=== PATIENT | female | born 1930 | race Caucasian/White ===

== ENCOUNTER 2017-10-27 07:00 | Inpatient (IN) | payer OTHER, MEDICARE ==
[~2017-10-27] VITALS: Ht 160 cm; Wt 59.0 kg
[2017-10-28 09:30] VITALS: BP 130/80
--- NOTE | 2017-10-28 10:32 | History & Physical Pre-Op ---
General Information and HPI History of Present Illness: This is an 86 year-old female with a history of HTN who recently underwent a revision of a right total hip replacement by Dr. Head at [facility] 3 weeks ago due to dislocating her right hip while at rehab. Her hospital course was complicated by acute blood loss anemia and she received a transfusion and was discharged to rehab at [facility]. She states the nurse noticed redness and swelling from her incision while she was removing ted last Thursday and contacted Dr. Head who evaluated the patient on , where he obtained cultures. She states she has been on cefuroxime 250 mg po bid after completing IV antiobiotics via PICC line for a strep bactremia infection that developed four months ago in which she underwent a washout of her left shoulder, right knee and right hip. She states Dr. Alexis, from [place] managed her antibiotics at [facility]. She states there was a Flu outbreak at rehab and was started on Tamiflu prophylactically. She denies any pain, fever, chills, night sweats, difficulty breathing or shortness of breath. Allergies/Medications Allergies: Coded Allergies: gluten (Intermediate, Celiac disease 10/28/17) Home Med list Acetaminophen (Tylenol Extra Strength) 500 MG TABLET 975 MG PO TID PAIN ( Reported) Amitriptyline HCl 100 MG TABLET 1 TAB PO QPM NEUROPATHY (Reported) Amlodipine Besylate (Norvasc) 5 MG TABLET 1 TAB PO DAILY HTN (Reported) Bromfenac Sodium 0.09 % DROPS 1 GTT OPH BID CATARACTS (Reported) Cefuroxime Axetil (Cefuroxime) 500 MG TABLET 1 TAB PO BID INFECTION (Reported ) Ferrous Sulfate 325 MG (65 MG IRON) TABLET 1 TAB PO BID ANEMIA (Reported) Furosemide (Lasix) 20 MG TABLET 1 TAB PO EVERY OTHER DAY BP (Reported) Furosemide (Lasix) 40 MG TABLET 1 TAB PO EVERY OTHER DAY BP (Reported) Hydralazine HCl 25 MG TABLET 1 TAB PO TID HTN (Reported) Oseltamivir Phosphate (Tamiflu) 75 MG CAPSULE 1 CAP PO DAILY FLU (Reported) Potassium Chloride 10 MEQ CAPSULE.ER 1 CAP PO DAILY HYPOKALEMIA (Reported) Prednisolone Acetate (Omnipred) 1 % DROPS.SUSP 1 GTT OPH Q4H MACULAR DEGENERATION (Reported) Tamsulosin HCl (Flomax) 0.4 MG CAP.ER.24H 1 CAP PO DAILY URINARY RETENTION ( Reported) Past History Medical History Blood Transfusion Hx: Yes Neurological: peripheral neuropathy EENT: cataracts, macular degeneration Cardiovascular: hypertension Blood Disorders: anemia Surgical History Pertinent Surgical History: cholecystectomy, , hip replacement (R hip; revision ), knee replacement (B/L in 1994), Metal plate skull, Carpal tunnel release B/L Review of Systems Review of Systems Constitutional: Denies: no symptoms. EENTM: Denies: no symptoms. Cardiovascular: Denies: no symptoms. Respiratory: Denies: no symptoms. GI: Denies: no symptoms. Genitourinary: Denies: no symptoms. Musculoskeletal: Denies: see HPI. Skin: Denies: see HPI. Neurological/Psychological: Denies: no symptoms. Hematologic/Endocrine: Denies: no symptoms. All Other Systems: Reviewed and Negative Exam & Diagnostic Data Last 24 Hrs of Vital Signs/I&O T - 98.0 F HR - 83 RR - 18 BP - 130/80 02 - 96% on RA Physical Exam: Gen - resting comfortably awake milan lert in NAD Cardiac - S1S2 noted Lungs - good inspiratory effort, CTAB Abd - soft, nondistended an nontender to palpation Ext - R hip inspected, ted removed with remaining steri-strips in place, from the medial aspect to the inferior incision is warm, erythematous and indurated on the lateral aspect of her hip, nontender to palpation with no active drainage noted, sensation decreased due to neuropathy and motor intact, decreased passive and active ROM due to pain. No edema or calf tender with chronic stasis changes B/L Assessment/Plan Assessment/Plan: This is an 86 year-old female with a history of HTN and a recent revision of a right total hip replacment by Dr. Head at [facility] who presents with a postoperative infection of her right total hip who requires surgical intervention Proceed to OR for washout and debridement of right hip today Keep NPO on IVF, IVF analgesics Preop - EKG, cbc, bep, coags, type and screen Resume home meds preop Start antibiotics postop D/w Dr. Head As Ranked By This Provider Problem List: 1. Postoperative wound infection of right hip 2. History of total right hip replacement 3. Status post revision of total hip replacement
[2017-10-28] MEDS ORDERED: TAMIFLU75 M1 PO (10:51)
[2017-10-28] MEDS ORDERED: NORVASC5 M1 PO (10:51)
[2017-10-28] MEDS ORDERED: AMITRIPTYLINE100 M2 PO (10:53)
[2017-10-28] MEDS ORDERED: BROMFENAC SODI1.7 ML OPH (10:54)
[2017-10-28] MEDS ORDERED: CEFUROXIME500 MG PO (10:54)
[2017-10-28] MEDS ORDERED: LASIX20 M1 PO (10:54)
[2017-10-28] MEDS ORDERED: FERROUS SULFAT325 M3 PO (10:54)
[2017-10-28] MEDS ORDERED: LASIX40 M1 PO (10:55)
[2017-10-28] MEDS ORDERED: HYDRALAZINE HCL25 M1 PO (10:56)
[2017-10-28] MEDS ORDERED: POTASSIUM CHLO10 ME3 PO (10:56)
[2017-10-28] MEDS ORDERED: FLOMAX0.4 M1 PO (10:59)
[2017-10-28] MEDS ORDERED: OMNIPRED10 ML OPH (11:00)
[2017-10-28] MEDS ORDERED: TYLENOL EXTRA500 M2 PO (11:01)
[2017-10-28 11:15] LABS: HEMATOCRIT 28.7 % (37-47); MEAN CORPUSCULAR HGB 27.8 PG (27.0-31.0); MEAN CORPUSCULAR HGB CONC 32.6 G/DL (33.0-37.0); MEAN CORPUSCULAR VOLUME 85.3 FL (81.0-99.0); MEAN PLATELET VOLUME 7.8 FL (7.4-10.4); PLATELET COUNT 483 /CUMM (130-400); RBC DISTRIBUTION WIDTH 15.3 % (11.5-14.5); RED BLOOD CELL CT 3.36 /CUMM (4.20-5.40); WHITE BLOOD CELL COUNT 8.7 /CUMM (4.8-10.8)
[2017-10-28 11:17] LABS: ABSOLUTE BASOPHIL COUNT 0 /CUMM (0.0-0.2); ABSOLUTE EOSINOPHIL COUNT 0.1 /CUMM (0.0-0.7); ABSOLUTE GRANULOCYTE CT 7.2 /CUMM (1.4-6.5); ABSOLUTE LYMPH COUNT 0.9 /CUMM (1.2-3.4); ABSOLUTE MONOCYTE COUNT 0.5 /CUMM (0.10-0.60); BASOPHIL % 0.5 % (0.0-2.0); EOSINOPHIL % 1.3 % (0-5); GRANULOCYTE % 82.5 % (42.2-75.2)
--- NOTE | 2017-10-28 15:05 | Operative Report ---
Operative/Inv Procedure Report Surgery Date: 10/28/17 Name of Procedure: 1. Right hip acetabular revision 2. Irrigation and non-excisional debridement right hip Pre-Operative Diagnosis: 1. Failed right hip component 2. Right hip infection Post-Operative Diagnosis: same Estimated Blood Loss: 650 Surgeon/Brake Tester: Bharta Head MD Anesthesia: block Operative/Procedure Note Note: Description of Procedure: The patient was taken to the operating room and positively identified. After induction of spinal anesthesia and administration of appropriate pre-operative antibiotics, the patient was positioned supine on the operating room table and all bony prominences were well padded. After performing a surgical timeout, the right lower extremity was prepped and draped in the usual sterile fashion. Utilizing the previous incision, a direct anterior approach was made to the right hip. The superficial layer was opened and some necrotic-looking tissue was identified. Samples of this were sent for culture. The superficial wound bed was then curetted. The deep fascia was identified and all retained suture was removed. The deep fascia was then opened and the hip was entered. Cloudy fluid was obtained. Samples of both the fluid and deep tissues were taken and sent for culture. The wound bed was then debrided of necrotic looking soft tissue. Some heterotopic ossification was removed. The trunnion was removed from the polyethylene component and the polyethylene component itself was removed from the acetabulum. At this point the wound bed was irrigated with multiple liters of sterile saline. The hip space was then lavaged with half strength Betadine solution. A new Jim D constrained liner was then impacted into the acetabular component. A [place] 22.2 mm +0 femoral head was impacted onto the trunnion. The head was then reduced into the constrained liner without difficulty. The wound bed was then irrigated with multiple liters of sterile saline again. A gram of vancomycin powder was placed in the intra-articular space. Medium Hemovac drain was left in the deep space. The fascial layer was closed with interrupted #5 Ethibond suture. Another drain was left superficial to the fascia. The skin layer was closed with heavy nylon suture in horizontal mattress fashion and then ted were used for the remainder of the closure. Sterile dressings were applied, the patient was awakened, and taken to the recovery room in satisfactory condition.
[2017-10-28 15:44] LABS: ABSOLUTE BASOPHIL COUNT 0 /CUMM (0.0-0.2); ABSOLUTE EOSINOPHIL COUNT 0.2 /CUMM (0.0-0.7); ABSOLUTE GRANULOCYTE CT 6.1 /CUMM (1.4-6.5); ABSOLUTE LYMPH COUNT 1.3 /CUMM (1.2-3.4); ABSOLUTE MONOCYTE COUNT 0.5 /CUMM (0.10-0.60); BASOPHIL % 0.2 % (0.0-2.0); EOSINOPHIL % 2.8 % (0-5); GRANULOCYTE % 74.9 % (42.2-75.2); MEAN CORPUSCULAR HGB 28.3 PG (27.0-31.0); MEAN CORPUSCULAR VOLUME 85.7 FL (81.0-99.0); MEAN PLATELET VOLUME 7.8 FL (7.4-10.4); PLATELET COUNT 444 /CUMM (130-400); RBC DISTRIBUTION WIDTH 15.5 % (11.5-14.5); RED BLOOD CELL CT 2.52 /CUMM (4.20-5.40); WHITE BLOOD CELL COUNT 8.2 /CUMM (4.8-10.8)
[2017-10-28 15:49] LABS: HEMATOCRIT 21.6 % (37-47)
--- NOTE | 2017-10-28 16:16 | Admission Core Measures ---
Acute Coronary Syndrome (CM) ACS Core Measures Acute Coronary Syndrome Diagnosis No Congestive Heart Failure (NEW) CHF Core Measures Congestive Heart Failure Diagnosis No Cerebrovascular Accident (NEW) CVA Core Measures CVA/TIA Diagnosis No Venous Thromboembolism VTE Core Reji (View Protocol) VTE Risk Factors Surgery No Mechanical VTE Prophylaxis d/t N/A MechProphylax Ordered No VTE Pharm Prophylaxis d/t NA PharmProphylax ordered Problem List As ranked by this Provider includes Assessment & Plan 1. Postoperative wound infection of right hip 2. History of total right hip replacement 3. Status post revision of total hip replacement HOME MEDS Home Med List Acetaminophen (Tylenol Extra Strength) 500 MG TABLET 975 MG PO TID PAIN ( Reported) Amitriptyline HCl 100 MG TABLET 1 TAB PO QPM NEUROPATHY (Reported) Amlodipine Besylate (Norvasc) 5 MG TABLET 1 TAB PO DAILY HTN (Reported) Bromfenac Sodium 0.09 % DROPS 1 GTT OPH BID CATARACTS (Reported) Cefuroxime Axetil (Cefuroxime) 500 MG TABLET 1 TAB PO BID INFECTION (Reported ) Ferrous Sulfate 325 MG (65 MG IRON) TABLET 1 TAB PO BID ANEMIA (Reported) Furosemide (Lasix) 20 MG TABLET 1 TAB PO EVERY OTHER DAY BP (Reported) Furosemide (Lasix) 40 MG TABLET 1 TAB PO EVERY OTHER DAY BP (Reported) Hydralazine HCl 25 MG TABLET 1 TAB PO TID HTN (Reported) Oseltamivir Phosphate (Tamiflu) 75 MG CAPSULE 1 CAP PO DAILY FLU (Reported) Potassium Chloride 10 MEQ CAPSULE.ER 1 CAP PO DAILY HYPOKALEMIA (Reported) Prednisolone Acetate (Omnipred) 1 % DROPS.SUSP 1 GTT OPH Q4H MACULAR DEGENERATION (Reported) Tamsulosin HCl (Flomax) 0.4 MG CAP.ER.24H 1 CAP PO DAILY URINARY RETENTION ( Reported)
--- NOTE | 2017-10-28 16:55 | PN- Orthopedic ---
Subjective Subjective: POC S/P I&D LEFT JAYDEN INFECTION W/PARTIAL COMPONENT EXCHANGE(CONTRAINED LINER/HEAD) RESTING COMFORTABLY IN PACU DENIES CP, SOB, NO N+V Objective Vital Signs and I&Os Vital Signs Date Time Temp Pulse Resp B/P B/P Pulse O2 O2 Flow FiO2 Mean Ox Delivery Rate 10/28 1059 Room Air 10/28 0930 98.0 83 18 130/80 96 Room Air Intake & Output 10/28 1600 10/28 0800 10/28 0000 10/27 1600 10/27 0800 10/27 0000 Intake Total Output Total 300 Balance -300 Output, Urine 300 Patient 132 lb Weight Weight Bed scale Measurement Method Physical Exam: CV: RRR LUNGS: CLEAR ABD: SOFT, +BS EXT: THIGH SOFT, DRSG DRY, DISTAL CMS INTACT GHISLAINE DRAINS X2 - WITH SANGUINOUS DRAINAGE Assessment/Plan Assessment/Plan ORTHO STABLE POST OP H/H 04/[address] KIRKPATRICK IN PACU TITRATE PAIN MEDS ADVANCE DIET TOLERATED OOB WITH PT IN AM WBAT RIGHT LE Core Measures Venous Thromboembolism VTE Risk Factors Surgery No Mechanical VTE Prophylaxis d/t N/A MechProphylax Ordered No VTE Pharm Prophylaxis d/t NA PharmProphylax ordered
--- NOTE | 2017-10-28 17:34 | RADIOLOGY REPORT ---
EXAMINATION: XR HIP, RIGHT CLINICAL INFORMATION: Status post right total hip replacement. COMPARISON: None TECHNIQUE: Portable AP and crosstable views of the right hip were obtained. FINDINGS: Right total hip arthroplasty hardware is in place and appears to be in satisfactory position. No associated fracture is noted. Drainage catheters are noted in the surgical bed. Cutaneous ted are noted over the right hip and proximal thigh laterally. Expected postsurgical changes of soft tissue edema and air are seen in the right hip. IMPRESSION: Expected postsurgical changes of right total hip arthroplasty; the hardware appears to be in satisfactory position without associated fractures.
[2017-10-28 18:15] VITALS: BP 110/60
[2017-10-28 23:30] VITALS: BP 108/643
[2017-10-29 06:49] VITALS: BP 120/58
--- NOTE | 2017-10-29 07:43 | PN- Orthopedic ---
See Addendum Subjective Subjective: PT IN BED TRYING TO SLEEP. MINIMAL PAIN. KIRKPATRICK IN. HAS NOT BEEN OUT OF BED YET. DENIES SOB OR CP. TOLERATING FLUIDS BY MOUTH. FEELS LIKE SHE NEEDS TO HAVE A BM DENIES FEVERS Objective Vital Signs and I&Os Vital Signs Date Time Temp Pulse Resp B/P B/P Pulse O2 O2 Flow FiO2 Mean Ox Delivery Rate 10/29 0649 97.6 76 18 120/58 96 Room Air 10/28 2330 97.9 80 16 108/643 96 Room Air 10/28 2237 80 100/50 10/28 1815 97.4 84 18 110/60 96 Room Air 10/28 1059 Room Air 10/28 0930 98.0 83 18 130/80 96 Room Air Intake & Output 10/29 0800 10/29 0000 10/28 1600 10/28 0800 10/28 0000 10/27 1600 Intake Total 600 Output Total 350 600 300 Balance -350 0 -300 Intake, Blood 350 Product Intake, Oral 250 Output, 150 Drainage Output, Urine 350 450 300 Patient 132 lb Weight Weight Bed scale Measurement Method Physical Exam: GEN-NAD RESP-CLEAR CARDIO-RRR ABD-SOFT, NONTENDER EXT- RIGHT HIP DRESSING CLEAN AND DRY. HEMOVAV IN PLACE, ON SUCTION, MINIMAL BLOODY DRAINAGE. GHISLAINE IN PLACE ON SUCTION WITH SCANT SANG DRAINAGE IN BULB. DISTAL SENSATION AND MOVEMENT INTACT Assessment/Plan Assessment/Plan 86YO F SP RIGHT HIP I&D POD1. RECIEVED 2 UNITS PRBCS YESTERDAY POSTOPERATIVELY DUE TO H/H 04/17. AWAITING AM LABS, ALTHOUGH NOT SYMPTOMATIC THIS MORNING. POSSIBLY LEIF KIRKPATRICK LATER TODAY IF SHE TOELRATES WORKING WITH PT TITRATE PAIN MEDS ADVANCE DIET TOLERATED OOB WITH PT- WBAT RIGHT LE DVT PPX-ASA AND ALPS ENCOURAGE IS Core Measures Venous Thromboembolism VTE Risk Factors Surgery No Mechanical VTE Prophylaxis d/t N/A MechProphylax Ordered No VTE Pharm Prophylaxis d/t NA PharmProphylax ordered
[2017-10-29 09:35] LABS: ABSOLUTE BASOPHIL COUNT 0 /CUMM (0.0-0.2); ABSOLUTE EOSINOPHIL COUNT 0.2 /CUMM (0.0-0.7); ABSOLUTE GRANULOCYTE CT 5.6 /CUMM (1.4-6.5); ABSOLUTE LYMPH COUNT 0.8 /CUMM (1.2-3.4); ABSOLUTE MONOCYTE COUNT 0.7 /CUMM (0.10-0.60); BASOPHIL % 0.5 % (0.0-2.0); EOSINOPHIL % 3.2 % (0-5); GRANULOCYTE % 76.2 % (42.2-75.2); HEMATOCRIT 23.1 % (37-47); MEAN CORPUSCULAR HGB 28.4 PG (27.0-31.0); MEAN CORPUSCULAR HGB CONC 33.7 G/DL (33.0-37.0); MEAN CORPUSCULAR VOLUME 84.2 FL (81.0-99.0); MEAN PLATELET VOLUME 8.5 FL (7.4-10.4); PLATELET COUNT 306 /CUMM (130-400); RBC DISTRIBUTION WIDTH 16.5 % (11.5-14.5); RED BLOOD CELL CT 2.74 /CUMM (4.20-5.40); WHITE BLOOD CELL COUNT 7.4 /CUMM (4.8-10.8)
[2017-10-29 14:43] VITALS: BP 130/72
[2017-10-29 21:23] VITALS: BP 118/60
[2017-10-30 06:00] VITALS: BP 148/74
[2017-10-30 09:10] LABS: ABSOLUTE BASOPHIL COUNT 0 /CUMM (0.0-0.2); ABSOLUTE EOSINOPHIL COUNT 0.4 /CUMM (0.0-0.7); ABSOLUTE LYMPH COUNT 1.3 /CUMM (1.2-3.4); ABSOLUTE MONOCYTE COUNT 0.6 /CUMM (0.10-0.60); BASOPHIL % 0.5 % (0.0-2.0); EOSINOPHIL % 4.5 % (0-5); GRANULOCYTE % 72.4 % (42.2-75.2); HEMATOCRIT 25.9 % (37-47); MEAN CORPUSCULAR HGB CONC 32.7 G/DL (33.0-37.0); MEAN CORPUSCULAR VOLUME 85.7 FL (81.0-99.0); MEAN PLATELET VOLUME 8.4 FL (7.4-10.4); PLATELET COUNT 312 /CUMM (130-400); RBC DISTRIBUTION WIDTH 16.2 % (11.5-14.5); RED BLOOD CELL CT 3.02 /CUMM (4.20-5.40); WHITE BLOOD CELL COUNT 8.3 /CUMM (4.8-10.8)
[2017-10-30 14:53] VITALS: BP 120/70
--- NOTE | 2017-10-30 16:59 | PN- Orthopedic ---
Subjective Subjective: No acute overnight events reported. Pain under control presesntly. GHISLAINE x2 removed. No c/o chest pain, shortness of breath and difficulty breathing. No c /o nausea and vomitting. Has been oob, ambulating. Cleared by PT for dc to home when medically optimized. Objective Vital Signs and I&Os Vital Signs Date Time Temp Pulse Resp B/P B/P Pulse O2 O2 Flow FiO2 Mean Ox Delivery Rate 10/30 1634 84 140/72 10/30 1453 97.3 93 20 120/70 93 10/30 0900 78 132/80 10/30 0600 98.4 85 18 148/74 99 Room Air 10/29 2123 98.2 92 18 118/60 95 Room Air 10/29 2009 92 118/60 Intake & Output 10/30 1600 10/30 0810/30 0000 10/29 1600 10/29 0810/29 0000 Intake Total 0 800 1200 1080 600 Output Total 900 300 275 560 408 600 Balance -900 -300 525 640 672 0 Intake, Blood 350 Product Intake, IV 0 600 600 Intake, Oral 0 800 600 480 250 Number 0 Bowel Movements Output, 25 85 58 150 Drainage Output, Urine 900 300 250 475 350 450 Patient 130 lb Weight Physical Exam: General: Alert and oriented x3, no acute distress Cardiac: RRR, s1s2 Pulm: CTA bilaterally Abd: Non-tender, non-distended Extremities: Moves all extremities, distal sensation grossly intact. Skin warm and well perfused. DP pulses palpable bilaterally. Bilateral calves soft, non- tender Right thigh, GHISLAINE x2 removed. Dressing saturated, changed. Thigh compartment soft. Assessment/Plan Assessment/Plan This is a 86 year old female, POD 2, s/p Revision R THR with washout -Continue vancomycin [address] Head -Await culture results -Dr. Head to determine final abx therapy for home upon results from culture -Continue ASA 325 bid for dvt ppx, alps -Activity: OOB, wbat -Diet as tolerated -Has been cleared by PT for dc home with [facility] Core Measures Venous Thromboembolism VTE Risk Factors Surgery No Mechanical VTE Prophylaxis d/t N/A MechProphylax Ordered No VTE Pharm Prophylaxis d/t NA PharmProphylax ordered
--- NOTE | 2017-10-30 20:48 | Patient Discharge Instructions ---
Discharge Instructions General Discharge Information You were seen/treated for: Infected right total hip replacement You had these procedures: Incision and drainage right total hip replacement with revision acetabular component Watch for these problems: Increasing pain despite the use of pain medications Increasing redness, warmth, swelling of right thigh Inability to bear weight on right leg Call Surgeon to remove: [place], Stitches Do not soak the wound: Yes No bath, but you may shower: Yes Other wound care: Keep wound clean and dry Diet Continue normal diet: Yes Recommended Diet: Regular Acute Coronary Syndrome Inclusion Criteria At DC or during hospital stay patient has or had the following: ACS DIAGNOSIS No Discharge Core Measures Meds if any: Prescribed or Continued at Discharge Meds if any: NOT Prescribed or Continued at Discharge Congestive Heart Failure Inclusion Criteria At DC or during hospital stay patient has or had the following: CHF DIAGNOSIS No Discharge Core Measures Meds if any: Prescribed or Continued at Discharge Meds if any: NOT Prescribed or Continued at Discharge Cerebrovascular accident Inclusion Criteria At DC or during hospital stay patient has or had the following: CVA/TIA Diagnosis No Discharge Core Measures Meds if any: Prescribed or Continued at Discharge Meds if any: NOT Prescribed or Continued at Discharge Venous thromboembolism Inclusion Criteria VTE Diagnosis No VTE Type NONE VTE Confirmed by (Test) NONE Discharge Core Measures - Per Current guidelines, there needs to be overlap - treatment for the first 5 days of Warfarin therapy. - If discharged on Warfarin prior to 5 days of - overlap therapy, the patient will need to be - assessed for post discharge needs including - *Post discharge parental anticoagulation - *Warfarin and/or parental anticoagulation education - *Follow up date to check INR post discharge At least 5 days overlap therapy as Inpatient No Meds if any: Prescribed or Continued at Discharge Note: Overlap Therapy is Warfarin and Anticoagulant Meds if any: NOT Prescribed or Continued at Discharge
--- NOTE | 2017-10-30 20:51 | Surgical Discharge Summary ---
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 [facility] Who Do You Live With? Family What is Your Primary Language? Citizen Of [place] Review of Systems: See H&P Hospital Course Course Attending Physician: Bharat Head MD Primary Care Physician: Ranjit Cordova MD Hospital Course: Admitted to hospital 10/28/2017 for I&D of right total hip replacement with acetabular component revision. Tolerated procedure well. Transferred to general surgical floor. Diet was advanced and tolerated. Pain was controlled with po pain medications. PT evaluated and treated. Was cleared by PT for discharge to home. Throughout hospital stay and at time of discharge, vital signs were stable and within normal limits, and neurovascular status remained intact. On 10/30 the final cultures returned as no growth. She was discharged on amoxicillin 500mg po bid for two weeks per Sonido and instructed to follow up with her ID physician Nikia Alexis within two weeks and also Dr Head within two weeks. She was to take 162mg asa bid for 30 days for dvt ppx. Allergies: Coded Allergies: gluten (Intermediate, Celiac disease 10/28/17) Significant Procedures: See operative report Disposition Summary Disposition Principal Diagnosis: Infected R THR Additional Diagnosis: None Discharge Disposition: home health services Discharge Instructions General Discharge Information Code Status: Full Code Patient's Diet: Regular, advance as tolerated Patient's Activity: WBAT Follow-Up Instructions/Appts: Follow up with Dr. Head in 2 weeks for wound check Dr Alexis (ID) within two weeks Medications at Discharge Discharge Medications: Stop taking the following medications: Oseltamivir Phosphate (Tamiflu) 75 MG CAPSULE ORAL DAILY Cefuroxime Axetil (Cefuroxime) 500 MG TABLET ORAL TWICE DAILY Continue taking these medications: Amlodipine Besylate (Norvasc) 5 MG TABLET 1 Tablet ORAL DAILY Amitriptyline HCl (Amitriptyline HCl) 100 MG TABLET 1 Tablet ORAL Every night Bromfenac Sodium (Bromfenac Sodium) 0.09 % DROPS 1 Drop In the eye TWICE DAILY Ferrous Sulfate (Ferrous Sulfate) 325 MG (65 MG IRON) TABLET 1 Tablet ORAL TWICE DAILY Furosemide (Lasix) 20 MG TABLET 1 Tablet ORAL EVERY OTHER DAY Furosemide (Lasix) 40 MG TABLET 1 Tablet ORAL EVERY OTHER DAY Hydralazine HCl (Hydralazine HCl) 25 MG TABLET 1 Tablet ORAL THREE TIMES DAILY Potassium Chloride (Potassium Chloride) 10 MEQ CAPSULE.ER 1 Capsule ORAL DAILY Tamsulosin HCl (Flomax) 0.4 MG CAP.ER.24H 1 Capsule ORAL DAILY Prednisolone Acetate (Omnipred) 1 % DROPS.SUSP 1 Drop In the eye Q4H Acetaminophen (Tylenol Extra Strength) 500 MG TABLET 1 Tablet ORAL THREE TIMES DAILY as needed for pain Instructions: take as needed for pain, may alternate with percocet. Do not take over 4000mg acetaminophen in 24 hrs Start taking the following new medications: Oxycodone HCl/Acetaminophen (Percocet 5-325 MG Tablet) 5 MG-325 MG TABLET 1 Tablet ORAL EVERY 4 HOURS NEEDED as needed for PAIN Qty = 10 No Refills Aspirin (Ecotrin*) 81 MG TABLET.DR 2 Tablet ORAL TWICE DAILY Qty = 120 No Refills Amoxicillin (Amoxicillin) 500 MG TABLET 1 Tablet ORAL TWICE DAILY Qty = 28 No Refills Copies To: Gulshan Alexis MD, MD, Philip
[2017-10-30 22:14] VITALS: BP 146/60
[2017-10-31 07:51] VITALS: BP 138/58
--- NOTE | 2017-10-31 08:53 | PN- Orthopedic ---
Subjective Subjective: Awake, alert no complaints overnight Pain is well controlled Cleared by PT for home with services - pt wants to go today Objective Vital Signs and I&Os Vital Signs Date Time Temp Pulse Resp B/P B/P Pulse O2 O2 Flow FiO2 Mean Ox Delivery Rate 10/31 0751 97.9 81 20 138/58 98 Room Air 10/30 2214 97.6 92 20 146/60 96 10/30 2109 84 140/72 10/30 1634 84 140/72 10/30 1453 97.3 93 20 120/70 93 10/30 0900 78 132/80 Intake & Output 10/31 1600 10/31 0800 10/31 0000 10/30 1600 10/30 0800 10/30 0000 Intake Total 360 360 0 800 Output Total 200 1200 1100 300 275 Balance 160 -840 -1100 -300 525 Intake, IV 0 Intake, Oral 360 360 0 800 Number 0 Bowel Movements Output, 25 Drainage Output, Urine 200 1200 1100 300 250 Physical Exam: afebrile, vss General: alert and oriented times three chest: clear anteriorly bilaterally, RRR Abd: soft, good bs Ext: warm, no edema, normosensate, good 5/5 CARYN Wd: looks good, retention sutures in place, mild drainage serosang from lower wound, no erythema, no purulent drainage Cultures - no growth - final Assessment/Plan Assessment/Plan 86yo female s/p R hip I&D, acetab revision pod 3 tech unable to get blood this morning Will dc labwork as they arent necessary at this time - hct stable past two days Final O.R. culture is no growth Will discuss abx with Dr Head Cleared by PT for dc home with services DC later this morning Core Measures Venous Thromboembolism VTE Risk Factors Surgery No Mechanical VTE Prophylaxis d/t N/A MechProphylax Ordered No VTE Pharm Prophylaxis d/t NA PharmProphylax ordered
[2017-10-31] MEDS ORDERED: PERCOCET 5-3251 EACH PO (09:02)
[2017-10-31] MEDS ORDERED: ASPIRIN EC81 M1 PO (09:34)
[2017-10-31] MEDS ORDERED: AMOXICILLIN500 M3 PO (09:50)
[2017-10-31 10:19] VITALS: BP 130/58
== END 2017-10-31 14:06 | disposition home health service (06) | DRG 467 ==
LOC: SDA 07:00 → 2NA 16:21 → SDA 10-28 07:00 → EDSTATUS 10-28 07:00 → 2NA 10-28 09:00 → ENTRNSPT 10-28 18:02 → CMPTRNSPT 10-28 18:29 → 2NA 10-30 07:25 → ENTRNSPT 10-31 13:43 → CMPTRNSPT 10-31 14:01 → 2NA 10-31 14:06
PROVIDERS: Orthopaedic Surgery; Physician Assistant; Physician Assistant Surgical
PROC: 0SUA09Z Supplement Right Hip Joint, Acetabular Surface with Liner, Open Approach (ICD-10-PCS; principal; 2017-10-28)
PROC: 0SRR0JA Replacement of Right Hip Joint, Femoral Surface with Synthetic Substitute, Uncemented, Open Approach (ICD-10-PCS; principal; 2017-10-28)
PROC: 0SP909Z Removal of Liner from Right Hip Joint, Open Approach (ICD-10-PCS; principal; 2017-10-28)
PROC: 0SPR0JZ Removal of Synthetic Substitute from Right Hip Joint, Femoral Surface, Open Approach (ICD-10-PCS; principal; 2017-10-28)
PROC: 0JDL0ZZ Extraction of Right Upper Leg Subcutaneous Tissue and Fascia, Open Approach (ICD-10-PCS; principal; 2017-10-28)
PROC: 30233N1 Transfusion of Nonautologous Red Blood Cells into Peripheral Vein, Percutaneous Approach (ICD-10-PCS; 2017-10-28)
DX: T84.51XA Infection and inflammatory reaction due to internal right hip prosthesis, initial encounter (principal); D62 Acute posthemorrhagic anemia; Z96.641 Presence of right artificial hip joint; I10 Essential (primary) hypertension; Z96.653 Presence of artificial knee joint, bilateral; Z90.49 Acquired absence of other specified parts of digestive tract; Z96.7 Presence of other bone and tendon implants; Y83.8 Other surgical procedures as the cause of abnormal reaction of the patient, or of later complication, without mention of misadventure at the time of the procedure
CPT/HCPCS: 2NAP; 87070; 87075; 36415; 73502-RT; 82436; 86920; 87086; 93005; 93010; 97110-GO; 97116-GO; 97161-GP; 97530-GO; J0131; J0735; J1940; J2405; J3370; J3490; J7042; J7060; P9016